=== PATIENT | female | born 1960 | race African-American/Black ===

== ENCOUNTER 2021-07-15 07:56 | Day surgery (SDC) | payer OTHER ==
[2021-07-10 16:10] VITALS: BMI 41.1
[2021-07-15 09:52] VITALS: TEMP 97.9
[2021-07-15 10:04] VITALS: BP 143/56; PULSE 88
== END 2021-07-15 10:14 | disposition home or self-care (01) ==
LOC: FASU-ENDO 07:56
PROVIDERS: ATTEND Internal Medicine Gastroenterology
PROC: 0DBM8ZX Excision of Descending Colon, Via Natural or Artificial Opening Endoscopic, Diagnostic (ICD-10-PCS; principal; 2021-07-15 09:20)
DX: D12.4 Benign neoplasm of descending colon (principal); Z12.11 Encounter for screening for malignant neoplasm of colon; Z86.010 Personal history of colon polyps
CPT/HCPCS: 88305-TC